=== PATIENT | male | born 1935 | race Caucasian/White ===

== ENCOUNTER 2017-06-25 20:24 | Inpatient (IN) | payer BC, MEDICARE ==
[2017-06-25] MEDS ORDERED: NS 0.9% 1000 ML* 1,000 ML IV ONE (21:16)
[2017-06-25] MEDS ORDERED: Acetaminophen TAB* 325 MG PO ONE (21:16)
[2017-06-25] MEDS ORDERED: NS 0.9% 1000 ML*IV.FLUID IV ONE (21:18)
[2017-06-25] MEDS ORDERED: cefTRIAXone(*) 1 GM in NS 0.9% 50 ML* 50 ML IVPB ONE (21:18)
[2017-06-25] MEDS ORDERED: Azithromycin IV(*) 500 MG in NS 0.9% 250 ML* 250 ML IVPB ONE (21:18)
[2017-06-25] MEDS ORDERED: Albuterol/Ipratropium NEB.SOL* Albuterol 2.5 MG/Ipratropium 0.5 MG 3 ML INH ONE (21:20)
[2017-06-25 21:44] LABS: Hematocrit 31 % (42-52); Hemoglobin 10.4 g/dl (14.0-18.0); Mean Corpuscular HGB Conc 34 g/dl (31-36); Mean Corpuscular Hemoglobin 32 pg (27-31); Mean Corpuscular Volume 93 fL (80-94); Mean Platelet Volume 7 um3 (7.4-10.4); Red Blood Count 3.29 10^6/ul (4.0-5.4); Red Cell Distribution Width 14 % (10.5-15); White Blood Count 11.7 10^3/ul (3.5-10.8)
[2017-06-25 21:59] LABS: Albumin 3.2 g/dL (3.2-5.2); BUN/Creatinine Ratio 20.2 (8-20); Calcium 9.2 mg/dL (8.6-10.3); EGFR African American 47.3 (>60); EGFR Non-African American 36.8 (>60); Globulin 3.4 g/dL (2-4); Total Bilirubin 0.5 mg/dL (0.2-1.0); Total Protein 6.6 g/dL (6.4-8.9)
[2017-06-25 22:00] LABS: Troponin I 0.03 ng/mL (<0.04)
[2017-06-25] MEDS ORDERED: NS 0.9% 1000 ML* 1,000 ML IV SCH (23:45)
[2017-06-25] MEDS ORDERED: Acetaminophen TAB* 325 MG PO PRN (23:50)
[2017-06-25] MEDS ORDERED: Levalbuterol HFA INHALER* 1 PUFF MDI INH PRN (23:52)
--- NOTE | 2017-06-26 03:23 | HP ---
CC: Dr. Renner; Dr. Herman * HISTORY AND PHYSICAL: DATE OF ADMISSION: 06/25/17 PRIMARY CARE PROVIDER: Dr. Renner. MARKETING GRAPHICS SPECIALIST: Dr. Herman. CHIEF COMPLAINT: Shortness of breath. HISTORY OF PRESENT ILLNESS: Stanley Magana is an 81-year-old male with history of oxygen-dependent COPD. The patient uses oxygen at 2 L at home nightly and on as needed basis during the day. He has been having problems with nonproductive cough and feeling weak for the past 4 or 5 days. He presented to the ED for evaluation and was noted to have right lower lobe infiltrate. He is going to be admitted with diagnosis of community-acquired pneumonia. PAST MEDICAL HISTORY: 1. History of COPD, as mentioned above, on oxygen at night at 2 L and on an as needed basis. 2. History of dyslipidemia. 3. History of diabetes type 2. 4. History of paroxysmal atrial fibrillation, on Xarelto. 5. History of BPH. 6. History of coronary artery disease. The patient had a cardiac catheterization in the past, but his coronary artery disease was not amenable for intervention. 7. History of hypertension. 8. History of chronic kidney disease stage 3 due to diabetes. 9. History of lower back surgery in the past. MEDICATIONS: At home include: 1. Xopenex inhaler 2 puffs every 6 hours p.r.n. 2. Advair 250/50 one inhalation b.i.d. 3. Flonase nasal spray 1 spray both nostrils daily. 4. Aspirin 81 mg daily. 5. Metoprolol tartrate 25 mg b.i.d. 6. Losartan 25 mg daily. 7. Spiriva 1 inhalation daily. 8. Flomax 0.4 mg daily. 9. Zocor 50 mg daily. 10. Xarelto 15 mg daily. 11. Singulair 10 mg daily. ALLERGIES: Include PENICILLIN. FAMILY HISTORY: Father's history is unknown. Mother of old age. SOCIAL HISTORY: The patient has a history of quitting smoking in May 2017 and he has a history of smoking most of his adult life. He began when he was about 13 years old. He denies any history of alcohol use. He denies any history of drug use. He lives with his , Radha, who is his surrogate. REVIEW OF SYSTEMS: Please see history of present illness. In addition to above mentioned, the patient is slightly hard of hearing. He has no problems with activities of daily living and he does not use any support for walking. All the remaining 14 systems were reviewed with the patient and patient's and were otherwise negative. PHYSICAL EXAMINATION GENERAL: The patient is a pleasant 81-year-old male who is in no acute distress. Alert and awake and oriented x3. VITAL SIGNS: Blood pressure of 110/63, heart rate of 89 and regular, respiratory rate 14, oxygen saturation 96% on 2 L oxygen nasal cannula. Temperature of 99.3. HEENT: Head: Atraumatic, normocephalic. Eyes: Pupils equal, round, and reactive to light and accommodation. Oropharynx clear. Mucosa moist. NECK: Supple. No JVD. No bruits bilaterally. RESPIRATORY: Rhonchi at lower lung base, otherwise intermittent crackles on auscultation of bilateral mid lungs. No wheezes appreciated. CARDIOVASCULAR: Regular rate and rhythm. No murmurs. ABDOMEN: Soft and nontender. Bowel sounds are present in all 4 quadrants. EXTREMITIES: There is trace bilateral pedal edema. Pulses are +2 bilaterally. There is no clubbing or cyanosis. NEURO EVALUATION: The patient is mildly hard of hearing. There is no evidence of cranial nerve abnormality. Motor strength is 5/5 bilaterally. PSYCHIATRIC EVALUATION: Oriented x3 with no evidence of anxiety or depression. DIAGNOSTIC STUDIES/LAB DATA: Laboratory data show a white blood cell count of 11.7, hemoglobin of 10.4, hematocrit of 31, and platelets of 171. Sodium was 132, potassium 4.0, chloride 102, carbon dioxide 22, BUN is 36, creatinine 1.78. INR of 1.2. Influenza tests were negative. Portable chest x-ray showed right lower lobe pneumonia. ASSESSMENT AND PLAN: Right lower lobe pneumonia. The patient has community- acquired pneumonia and history of oxygen dependent chronic obstructive pulmonary disease. He has mild leukocytosis, but otherwise his respiratory is not compromised above what appears to be his baseline. He is going to be placed on inpatient admission. I anticipate the patient will require 2 days of intravenous antibiotics and inpatient hospital stay. He is going to be continued on ceftriaxone and azithromycin started in the emergency department. Urine legionella and strep pneumo antigens are going to be obtained. As above mentioned, flu was already negative. In regards to patient's chronic obstructive pulmonary disease, he does not appear to be in exacerbation and nebulizers and as well as inhalers are going to be continued as outpatient. In regards to patient's history of atrial fibrillation, currently he is in sinus rhythm. His Xarelto is going to be continued as well as metoprolol. For his dyslipidemia, his statin is going to be continued. The patient has history of diabetes, which at this point appears to be diet controlled. His hemoglobin A1c in July 2016 was 5.7. I do not believe that further management of his diabetes is needed apart from occasional monitoring of his fasting glucose levels during his hospital stay. In regards to patient's chronic kidney disease, his creatinine is at baseline. His anemia, which is worsening of chronic and normocytic. Likely related to his chronic kidney disease. Nevertheless, we will observe and reevaluate with CBC in the morning. In regards to patient's DVT prophylaxis, the patient is already on Xarelto, which is going to be continued. Code status is full. His surrogate is his . TIME SPENT: Approximately 65 minutes was spent on admission of this patient, more than half that time was spent [id number] with the patient doing the interview and physical exam. [id number]/[facility] #: [id number] MTDD
--- NOTE | 2017-06-26 04:27 | ED ---
Jessika Corrales Edward, scribed for Dev Langston MD on 06/25/17 at 2117 . Respiratory - HPI Summary HPI Summary: 81 y/o male BIBA c/o SOB, cough and congestion starting 10 days ago. EMS admin x1 albuterol tx with some relief. Pt is on home O2 2lpm. Associated sx: fever ( 99), weakness, dizziness and fatigue. The cough is nonproductive. Former smoker. PMHx COPD, aortic aneurysm on the ABD. Pt also c/o a hernia underneath his ribs that "bothers the pt", especially when he sits up. Sx on AA. Pt is on blood thinners. - History of Current Complaint Stated Complaint: DIFFICULTY BREATHING Hx Obtained From: Patient Onset/Duration: Lasting Days Character: Cough (Nonproductive) Sputum Amount: None Aggravating Factor(s): Nothing Alleviating Factor(s): Nothing Associated Signs and Symptoms: Fever, SOB, Dizziness - weakness and fatigue - Allergy/Home Medications Allergies/Adverse Reactions: Allergies Allergy/AdvReac Type Severity Reaction Status Date / Time Penicillins [PCN] Allergy Unknown Rash Verified 06/16/16 07:19 PMH/Surg Hx/FS Hx/Imm Hx Previously Healthy: No Endocrine/Hematology History: Reports: Hx Diabetes Denies: Hx Anticoagulant Therapy, Hx Thyroid Disease Cardiovascular History: Reports: Hx Coronary Artery Disease, Hx Hypertension, Other Cardiovascular Problems/Disorders - CHOLESTEROL CONTROL WITH MEDS Denies: Hx Congestive Heart Failure, Hx Pacemaker/ICD Respiratory History: Reports: Hx Asthma, Hx Chronic Obstructive Pulmonary Disease (COPD) - Dx in evan 2010, Other Respiratory Problems/Disorders - COPD GI History: Reports: Hx Gastroesophageal Reflux Disease - OCCASIONAL - DIET RELATED, Other GI Disorders - OCCASIONAL CONSTIPATION History: Denies: Hx Renal Disease Musculoskeletal History: Reports: Hx Back Problems Sensory History: Reports: Hx Cataracts - BILATERAL, Hx Contacts or Glasses, Hx Hearing Problem - HOPI Denies: Hx Hearing Aid Opthamlomology History: Reports: Hx Cataracts - BILATERAL, Hx Contacts or Glasses Neurological History: Denies: Hx Dementia, Hx Seizures Psychiatric History: Denies: Hx Substance Abuse - Cancer History Hx Chemotherapy: No Hx Radiation Therapy: No - Surgical History Surgery Procedure, Year, and Place: back surgery Hx Anesthesia Reactions: No Infectious Disease History: Denies: Hx Clostridium Difficile, Hx Hepatitis, Hx Human Immunodeficiency Virus (HIV), Hx Shingles, Hx Tuberculosis - Family History Known Family History: Positive: Unknown - Social History Alcohol Use: None Hx Substance Use: No Substance Use Type: Reports: None Hx Tobacco Use: Yes Smoking Status (MU): Former Smoker Type: Cigarettes Amount Used/How Often: 1 PPD FOR ABOUT 60 YEARS Length of Time of Smoking/Using Tobacco: 60 YEARS Have You Smoked in the Last Year: No Review of Systems Positive: Fever, Fatigue Eyes: Negative Positive: Other - sinus congestion Cardiovascular: Negative Positive: Shortness Of Breath, Cough Gastrointestinal: Negative Genitourinary: Negative Musculoskeletal: Negative Skin: Negative Neurological: Other - dizziness Positive: Weakness Psychological: Normal All Other Systems Reviewed And Are Negative: Yes Physical Exam Triage Information Reviewed: Yes Vital Signs On Initial Exam: Initial Vitals Temp Pulse Resp BP Pulse Ox 37.4 C 92 13 125/66 95 06/25/17 20:38 06/25/17 20:38 06/25/17 20:38 06/25/17 20:38 06/25/17 20:38 Vital Signs Reviewed: Yes Appearance: Positive: Well-Appearing, No Pain Distress Skin: Positive: Warm, Skin Color Reflects Adequate Perfusion, Dry Head/Face: Positive: Normal Head/Face Inspection Eyes: Positive: EOMI, DANIA ENT: Positive: Normal ENT inspection - No nasal discharge Neck: Positive: Supple, Nontender Respiratory/Lung Sounds: Positive: Breath Sounds Present, Wheezes - Minimal, Other - Fine crackles @ R base. Cardiovascular: Positive: RRR, Pulses are Symmetrical in both Upper and Lower Extremities Abdomen Description: Positive: Nontender, Soft Bowel Sounds: Positive: Present Musculoskeletal: Positive: Normal, Strength/ROM Intact Neurological: Positive: Normal, Sensory/Motor Intact Diagnostics - Vital Signs Vital Signs Temp Pulse Resp BP Pulse Ox 06/25/17 23:00 92 14 114/51 96 06/25/17 22:30 88 20 133/59 97 06/25/17 22:09 84 14 98 06/25/17 22:00 84 17 96 06/25/17 21:00 91 16 116/55 95 06/25/17 20:45 93 18 94 06/25/17 20:44 115/63 06/25/17 20:38 37.4 C 92 13 125/66 95 - Laboratory Lab Results: Lab Results 11/06/25/17 06/25/17 Range/Units 21:32 21:32 21:32 WBC 11.7 H (3.5-10.8) 10^3/ul RBC 3.29 L (4.0-5.4) 10^6/ul Hgb 10.4 L (14.0-18.0) g/dl Hct 31 L (42-52) % MCV 93 (80-94) fL MCH 32 H (27-31) pg MCHC 34 (31-36) g/dl RDW 14 (10.5-15) % Plt Count 171 (150-450) 10^3/ul MPV 7 L (7.4-10.4) um3 Neut % (Auto) 87.1 H (38-83) % Lymph % (Auto) 5.7 L (25-47) % [place] % (Auto) 5.4 (1-9) % Eos % (Auto) 1.0 (0-6) % Baso % (Auto) 0.8 (0-2) % Absolute Neuts (auto) 10.2 H (1.5-7.7) 10^3/ul Absolute Lymphs (auto) 0.7 L (1.0-4.8) 10^3/ul Absolute Monos (auto) 0.6 (0-0.8) 10^3/ul Absolute Eos (auto) 0.1 (0-0.6) 10^3/ul Absolute Basos (auto) 0.1 (0-0.2) 10^3/ul Absolute Nucleated RBC 0 10^3/ul Nucleated RBC % 0 INR (Anticoag Therapy) 1.27 H (0.77-1.02) APTT 31.6 (26.0-36.3) seconds Sodium (133-145) mmol/L Potassium (3.5-5.0) mmol/L Chloride (101-111) mmol/L Carbon Dioxide (22-32) mmol/L Anion Gap (2-11) mmol/L BUN (6-24) mg/dL Creatinine (0.67-1.17) mg/dL Est GFR ( Amer) (>60) Est GFR (Non-Af Amer) (>60) BUN/Creatinine Ratio (8-20) Glucose (70-100) mg/dL Lactic Acid 1.6 (0.5-2.0) mmol/L Calcium (8.6-10.3) mg/dL Total Bilirubin (0.2-1.0) mg/dL AST (13-39) U/L ALT (7-52) U/L Alkaline Phosphatase (34-104) U/L Troponin I (<0.04) ng/mL Total Protein (6.4-8.9) g/dL Albumin (3.2-5.2) g/dL Globulin (2-4) g/dL Albumin/Globulin Ratio (1-3) Influenza A (Rapid) (Negative) Influenza B (Rapid) (Negative) 06/25/17 06/25/17 Range/Units 21:32 21:55 WBC (3.5-10.8) 10^3/ul RBC (4.0-5.4) 10^6/ul Hgb (14.0-18.0) g/dl Hct (42-52) % MCV (80-94) fL MCH (27-31) pg MCHC (31-36) g/dl RDW (10.5-15) % Plt Count (150-450) 10^3/ul MPV (7.4-10.4) um3 Neut % (Auto) (38-83) % Lymph % (Auto) (25-47) % [place] % (Auto) (1-9) % Eos % (Auto) (0-6) % Baso % (Auto) (0-2) % Absolute Neuts (auto) (1.5-7.7) 10^3/ul Absolute Lymphs (auto) (1.0-4.8) 10^3/ul Absolute Monos (auto) (0-0.8) 10^3/ul Absolute Eos (auto) (0-0.6) 10^3/ul Absolute Basos (auto) (0-0.2) 10^3/ul Absolute Nucleated RBC 10^3/ul Nucleated RBC % INR (Anticoag Therapy) (0.77-1.02) APTT (26.0-36.3) seconds Sodium 132 L (133-145) mmol/L Potassium 4.0 (3.5-5.0) mmol/L Chloride 102 (101-111) mmol/L Carbon Dioxide 22 (22-32) mmol/L Anion Gap 8 (2-11) mmol/L BUN 36 H (6-24) mg/dL Creatinine 1.78 H (0.67-1.17) mg/dL Est GFR ( Amer) 47.3 (>60) Est GFR (Non-Af Amer) 36.8 (>60) BUN/Creatinine Ratio 20.2 H (8-20) Glucose 164 H (70-100) mg/dL Lactic Acid (0.5-2.0) mmol/L Calcium 9.2 (8.6-10.3) mg/dL Total Bilirubin 0.50 (0.2-1.0) mg/dL AST 11 L (13-39) U/L ALT 8 (7-52) U/L Alkaline Phosphatase 51 (34-104) U/L Troponin I 0.03 (<0.04) ng/mL Total Protein 6.6 (6.4-8.9) g/dL Albumin 3.2 (3.2-5.2) g/dL Globulin 3.4 (2-4) g/dL Albumin/Globulin Ratio 0.9 L (1-3) Influenza A (Rapid) Negative (Negative) Influenza B (Rapid) Negative (Negative) Result Diagrams: 06/25/17 21:32 06/25/17 21:32 Lab Statement: Any lab studies that have been ordered have been reviewed, and results considered in the medical decision making process. - Radiology CXR Xray Interpretation: Positive (See Comments) - R LOWER LOBE PNA Radiology Interpretation Completed By: ED Physician Re-Evaluation - Re-Evaluation 1 Re-Evaluation Time: 22:24 Change: Improved Comment: discuss XR results, plan to admit Disposition - Course Course Of Treatment: Pt with crackles RLL and lobar infiltrate. Given high age and PORT score pt requires admission. CAP without MRSA or Pseudomonal risk factors. BCx obtained. Lactate not elevated. Admit for further. - Diagnoses Provider Diagnoses: Right basilar pneumonia - Physician Notifications Discussed Care Of Patient With: Janae Obregon Time Discussed With Above Provider: 22:27 Instructed by Provider To: Admit As Inpatient Discharge - Discharge Plan Condition: Guarded Disposition: ADMITTED TO [facility] documentation as recorded by the Jessika joseph Edward accurately reflects the service I personally performed and the decisions made by Ivis shaw Kirk, MD.
[2017-06-26 05:56] LABS: Hematocrit 28 % (42-52); Hemoglobin 9.7 g/dl (14.0-18.0); Mean Corpuscular HGB Conc 35 g/dl (31-36); Mean Corpuscular Hemoglobin 33 pg (27-31); Mean Corpuscular Volume 94 fL (80-94); Mean Platelet Volume 7 um3 (7.4-10.4); Red Blood Count 2.98 10^6/ul (4.0-5.4); Red Cell Distribution Width 14 % (10.5-15); White Blood Count 9.7 10^3/ul (3.5-10.8)
[2017-06-26 06:48] LABS: BUN/Creatinine Ratio 19.2 (8-20); Calcium 8.4 mg/dL (8.6-10.3); EGFR African American 57.2 (>60); EGFR Non-African American 44.5 (>60)
--- NOTE | 2017-06-26 07:22 | RAD ---
INDICATION: Cough and fever. COMPARISON: Comparison is made with prior study from November 21, 2012. TECHNIQUE: Dual-energy PA and lateral views of the chest were obtained. FINDINGS: The heart is within normal limits in size. Mediastinal and hilar contours appear within normal limits. There are infiltrates at both lung bases most consistent with pneumonia. No pleural effusion is seen.. IMPRESSION: BIBASILAR INFILTRATES.
[2017-06-26] MEDS ORDERED: Spiriva Inhaler DEVICE* 1 EACH DEVICE ONE (09:00)
[2017-06-26] MEDS: Rivaroxaban TAB(*) 15 MG PO SCH (09:04)
[2017-06-26] MEDS: Losartan TAB* 25 MG PO SCH (09:04)
[2017-06-26] MEDS: Atorvastatin* 20 MG TAB PO SCH (09:04)
[2017-06-26] MEDS: Tamsulosin CAP* 0.4 MG PO SCH (09:04)
[2017-06-26] MEDS: Aspirin Low Dose CHEW TAB* 81 MG PO SCH (09:04)
[2017-06-26] MEDS: Metoprolol Tartrate TAB* 25 MG PO SCH ×2 (09:04→20:57)
[2017-06-26] MEDS: Fluticasone NASAL SPRAY 50MCG* 16 gm SPRAY BTL BOTH NARES SCH (09:07)
[2017-06-26] MEDS: Mometasone/Formoter 200/5 MDI INH SCH ×2 (10:39→19:57)
[2017-06-26] MEDS: Tiotropium CAP.INH* CAP.INH/18 MCG (USE ORDER SET !) INH SCH (10:46)
[2017-06-26] MEDS ORDERED: Docusate CAP* 100 MG PO PRN (15:35)
[2017-06-26] MEDS ORDERED: Polyethylene Glycol 3350* 17 GM PACKET PO PRN (15:35)
--- NOTE | 2017-06-26 15:43 | PN ---
Subjective Date of Service: 06/26/17 Interval History: Patient feels much better than yesterday. Improved but present SOB, on 4L, which is up from 3L intermittently at home. Intermittently productive cough without hemoptysis. Constipated for significant period of time with discomfort. Denies CP, Abdominal pain, F/C, N/V, Dizziness, Lightheadedness, or other pain. Weakness improved. Able to ambulate around room. Family History: Unchanged from Admission Social History: Unchanged from Admission Past Medical History: Unchanged from Admission Objective Active Medications: Acetaminophen (Tylenol Tab*) 650 mg PO Q4H PRN PRN Reason: FEVER/PAIN Albuterol/Ipratropium (Duoneb (Albuterol 2.5 Mg/Ipratropium 0.5 Mg)) 1 neb INH Q6H PRN PRN Reason: sob/wheezing Aspirin (Aspirin Low Dose Tab*) [facility] Last Admin: 06/26/17 09:04 Dose: 81 mg Atorvastatin Calcium (Lipitor*) 20 mg PO [facility] Last Admin: 06/26/17 09:04 Dose: 20 mg Docusate Sodium (Colace Cap*) 200 mg PO DAILY PRN PRN Reason: CONSTIPATION Fluticasone Propionate (Flonase Nasal [place] 50mcg*) 1 spray [facility] [place] Last Admin: 06/26/17 09:07 Dose: 1 spray Ceftriaxone Sodium 1,000 mg/ (Sodium Chloride) 50 mls @ 200 mls/hr IVPB Q24H [facility] Stop: 06/26/17 23:00 Ceftriaxone Sodium 1,000 mg/ (Dextrose) 50 mls @ 200 mls/hr IVPB Q24H [facility] Azithromycin 250 mg/ Dextrose 250 mls @ 250 mls/hr IVPB Q24H [facility] Levalbuterol HCl (Xopenex Hfa Inhaler*) 2 puff INH Q6H PRN PRN Reason: SHORTNESS OF BREATH Losartan Potassium (Cozaar Tab*) 25 mg PO DAILY [facility] Last Admin: 06/26/17 09:04 Dose: 25 mg Metoprolol Tartrate (Lopressor Tab*) 25 mg PO BID [facility] Last Admin: 06/26/17 09:04 Dose: 25 mg Mometasone Furoate/Formoterol Fumar (Dulera 200/5 Mdi*) 2 puff INH BID [facility] Last Admin: 06/26/17 10:39 Dose: 2 puff Montelukast Sodium (Singulair Tab*) 10 mg PO QPM [facility] Polyethylene Glycol/Electrolytes (Miralax*) 17 gm PO DAILY PRN PRN Reason: CONSTIPATION Rivaroxaban (Xarelto(*)) 15 mg PO DAILY [facility] Last Admin: 06/26/17 09:04 Dose: 15 mg Tamsulosin HCl (Flomax Cap*) 0.4 mg PO DAILY [facility] Last Admin: 06/26/17 09:04 Dose: 0.4 mg Tiotropium Ralls (Spiriva Cap.Inh*) 1 cap INH QAM [facility] Last Admin: 06/26/17 10:46 Dose: 1 cap Vital Signs 06/25/17 06/26/17 06/26/17 23:30 00:00 00:01 Temperature Pulse Rate 89 88 87 Respiratory 14 15 17 Rate Blood Pressure 110/63 126/64 (mmHg) O2 Sat by Pulse 96 97 97 Oximetry 06/26/17 06/26/17 06/26/17 00:07 00:30 01:00 Temperature Pulse Rate 94 85 84 Respiratory 19 13 14 Rate Blood Pressure 125/64 125/66 (mmHg) O2 Sat by Pulse 93 96 94 Oximetry 06/26/17 06/26/17 06/26/17 01:17 01:49 03:55 Temperature 99.1 F 99.1 F 97.4 F Pulse Rate 82 82 79 Respiratory 19 19 18 Rate Blood Pressure 131/69 131/69 105/33 (mmHg) O2 Sat by Pulse 98 98 100 Oximetry 06/26/17 06/26/17 06/26/17 08:00 08:12 11:39 Temperature 98.1 F 98.3 F Pulse Rate 78 71 Respiratory 18 16 16 Rate Blood Pressure 114/54 142/74 (mmHg) O2 Sat by Pulse 99 96 Oximetry Oxygen Devices in Use Now: Nasal Cannula - 4L Appearance: Patient is an 81yo male who appears stated age and is sitting in the bed in [facility]. Eyes: No Scleral Icterus, PERRLA Ears/Nose/Mouth/Throat: NL Teeth, Lips, Gums, Mucous Membranes Moist, - - Pharyngeal erythema without exudate. Neck: NL Appearance and Movements; NL JVP, Trachea Midline Respiratory: Symmetrical Chest Expansion and Respiratory Effort, - - Decreased diffusely without adventitious lung sounds. Cardiovascular: NL Sounds; No Murmurs; No JVD, RRR, No Edema, - - Pulses 2+ in B /L Radial, DP/PT. No edema. Abdominal: NL Sounds; No Tenderness; No Distention, No Hepatosplenomegaly Lymphatic: No Cervical Adenopathy Extremities: No Edema Skin: No Rash or Ulcers, No Nodules or Sclerosis Neurological: Alert and Oriented x 3, - - CN II-XII grossly intact. Lines/Tubes/Other Access: Clean, Dry and Intact Tracheostomy Result Diagrams: 06/26/17 05:42 06/26/17 05:42 Additional Lab and Data: Lab Results Microbiology and Other Data: Microbiology 06/26/17 14:30 Gram Stain - Final Sputum Expectorated 06/26/17 02:00 Legionella Urinary Antigen - Final Urine Negative Legionella Streptococcus pneumoniae Ag Screen - Final Positive S. Pneumo Antigen Assess/Plan/Problems-Billing Assessment: Patient is an 81yo male with a PMH significant for COPD, CAD, CKD, HTN, and DM II who presents with RLL PNA with positive S. pneumo urinary antigen. - Patient Problems (1) RLL pneumonia Current Visit: Yes Status: Acute Code(s): J18.1 - LOBAR PNEUMONIA, UNSPECIFIED ORGANISM SNOMED Code(s): 727268848 Comment: Infiltrate on CXR with positive strep pneumo urine antigen. Continue Ceftriaxone and Azithromycin IV, will transition to PO at or before discharge. Suptum and blood cultures pending. Increased O2 demand at 4L. (2) COPD (chronic obstructive pulmonary disease) Current Visit: Yes Status: Acute Code(s): J44.9 - CHRONIC OBSTRUCTIVE PULMONARY DISEASE, UNSPECIFIED SNOMED Code(s): 30222581 Comment: Needs O2 intermittently at 3L during the day at home and 2L at night always. At 4L O2 now. No signs of acute exacerbation. (3) CKD (chronic kidney disease) Current Visit: Yes Status: Acute Code(s): N18.9 - CHRONIC KIDNEY DISEASE, UNSPECIFIED SNOMED Code(s): 125623444 Comment: Cret at baseline and trending down. Will monitor. Fluids discontinued due to cardiac history. (4) DMII (diabetes mellitus, type 2) Current Visit: Yes Status: Acute Comment: Diet controlled. Check fasting BG QAM. (5) HLD (hyperlipidemia) Current Visit: Yes Status: Acute Code(s): E78.5 - HYPERLIPIDEMIA, UNSPECIFIED SNOMED Code(s): 82193059 Comment: Continue statin. (6) Paroxysmal A-fib Current Visit: Yes Status: Acute Code(s): I48.0 - PAROXYSMAL ATRIAL FIBRILLATION SNOMED Code(s): 107043106 Comment: Regular HR on exam. Continue Xarelto and Metoprolol. (7) CAD (coronary artery disease) Current Visit: Yes Status: Acute Code(s): I25.10 - ATHSCL HEART DISEASE OF [place] CORONARY ARTERY W/O ANG PCTRS SNOMED Code(s): 83542333 Comment: S/P cath. No signs of ACS currently. (8) HTN (hypertension) Current Visit: Yes Status: Acute Code(s): I10 - ESSENTIAL (PRIMARY) HYPERTENSION SNOMED Code(s): 47041243 Comment: Normotensive, Continue Losartan and Metoprolol. (9) BPH (benign prostatic hyperplasia) Current Visit: Yes Status: Acute Code(s): N40.0 - BENIGN PROSTATIC HYPERPLASIA WITHOUT LOWER URINRY TRACT SYMP SNOMED Code(s): 992768483 Comment: Continue Flomax. (10) Constipation Current Visit: Yes Status: Acute Code(s): K59.00 - CONSTIPATION, UNSPECIFIED SNOMED Code(s): 30544542 Comment: Causing abdominal discomfort. 2 days since last BM. Chronic problem. Bowel Regimen ordered. (11) DVT prophylaxis Current Visit: Yes Status: Acute Code(s): SMA3849 - SNOMED Code(s): 240982244 Comment: Xarelto. (12) Full code status Current Visit: Yes Status: Acute Code(s): Z78.9 - OTHER SPECIFIED HEALTH STATUS SNOMED Code(s): 934127881 Status and Disposition: Patient is admitted inpatient. Will discharge when medically stable.
[2017-06-26] MEDS: Montelukast Sodium TAB* 10 MG PO SCH (17:24)
[2017-06-26] MEDS: guaiFENesin ER TAB 600 MG PO SCH (20:57)
[2017-06-26] MEDS ORDERED: cefTRIAXone VIAL(*) 1,000 MG in NS 0.9% 50 ML* 50 ML IVPB SCH (21:00)
[2017-06-26] MEDS: Azithromycin IV(*) 250 MG in D5W 250 ML BAG* 250 ML IVPB SCH (21:26)
[2017-06-26] MEDS ORDERED: Azithromycin IV(*) 500 MG in D5W 250 ML BAG* 250 ML IVPB SCH (22:00)
[2017-06-27 07:17] LABS: BUN/Creatinine Ratio 16.9 (8-20); Calcium 8.5 mg/dL (8.6-10.3); EGFR African American 55.9 (>60); EGFR Non-African American 43.5 (>60); Hematocrit 32 % (42-52); Hemoglobin 10.8 g/dl (14.0-18.0); Mean Corpuscular HGB Conc 34 g/dl (31-36); Mean Corpuscular Hemoglobin 32 pg (27-31); Mean Corpuscular Volume 93 fL (80-94); Mean Platelet Volume 8 um3 (7.4-10.4); Potassium 4.3 mmol/L (3.5-5.0); Red Blood Count 3.41 10^6/ul (4.0-5.4); Red Cell Distribution Width 14 % (10.5-15); White Blood Count 10.4 10^3/ul (3.5-10.8)
[2017-06-27] MEDS: Tiotropium CAP.INH* CAP.INH/18 MCG (USE ORDER SET !) INH SCH (08:19)
[2017-06-27] MEDS: Mometasone/Formoter 200/5 MDI INH SCH ×2 (08:19→19:49)
[2017-06-27] MEDS: Albuterol/Ipratropium NEB.SOL* Albuterol 2.5 MG/Ipratropium 0.5 MG 3 ML INH PRN ×2 (08:25→15:58)
[2017-06-27] MEDS: Fluticasone NASAL SPRAY 50MCG* 16 gm SPRAY BTL BOTH NARES SCH (09:19)
[2017-06-27] MEDS: Rivaroxaban TAB(*) 15 MG PO SCH (09:19)
[2017-06-27] MEDS: Tamsulosin CAP* 0.4 MG PO SCH (09:19)
[2017-06-27] MEDS: Losartan TAB* 25 MG PO SCH (09:19)
[2017-06-27] MEDS: Atorvastatin* 20 MG TAB PO SCH (09:19)
[2017-06-27] MEDS: guaiFENesin ER TAB 600 MG PO SCH ×2 (09:19→21:22)
[2017-06-27] MEDS: Metoprolol Tartrate TAB* 25 MG PO SCH ×2 (09:19→21:23)
[2017-06-27] MEDS: Aspirin Low Dose CHEW TAB* 81 MG PO SCH (09:19)
--- NOTE | 2017-06-27 16:18 | PN ---
Subjective Date of Service: 06/27/17 Interval History: Patient had increased SOB overnight which is worse with exertion. Able to wean O2 down to 3L during interview but lung exam worsened significantly overnight with rhonchi and expiratory wheezes present in all lung ruby with prolonged expiratory phase. Improved with Duoneb and then consistent with yesterday's exam by afternoon. Denies any other complaints such as CP, N/V, F/C, abdominal pain, diarrhea, constipation, dizziness, dysuria, or other pain. Family History: Unchanged from Admission Social History: Unchanged from Admission Past Medical History: Unchanged from Admission Objective Active Medications: Acetaminophen (Tylenol Tab*) 650 mg PO Q4H PRN PRN Reason: FEVER/PAIN Albuterol/Ipratropium (Duoneb (Albuterol 2.5 Mg/Ipratropium 0.5 Mg)) 1 neb INH Q6H PRN PRN Reason: sob/wheezing Last Admin: 06/27/17 15:58 Dose: 1 neb Aspirin (Aspirin Low Dose Tab*) [facility] [place] Last Admin: 06/27/17 09:19 Dose: 81 mg Atorvastatin Calcium (Lipitor*) 20 mg PO QAM [facility] Last Admin: 06/27/17 09:19 Dose: 20 mg Docusate Sodium (Colace Cap*) 200 mg PO DAILY PRN PRN Reason: CONSTIPATION Fluticasone Propionate (Flonase Nasal [place] 50mcg*) 1 spray [facility] Last Admin: 06/27/17 09:19 Dose: 1 spray Guaifenesin (Mucinex*) 1,200 mg PO BID [facility] Last Admin: 06/27/17 09:19 Dose: 1,200 mg Ceftriaxone Sodium 1,000 mg/ (Dextrose) 50 mls @ 200 mls/hr IVPB Q24H [facility] Azithromycin 250 mg/ Dextrose 250 mls @ 250 mls/hr IVPB Q24H [facility] Last Admin: 06/26/17 21:26 Dose: 250 mls/hr Levalbuterol HCl (Xopenex Hfa Inhaler*) 2 puff INH Q6H PRN PRN Reason: SHORTNESS OF BREATH Losartan Potassium (Cozaar Tab*) 25 mg PO DAILY [facility] Last Admin: 06/27/17 09:19 Dose: 25 mg Metoprolol Tartrate (Lopressor Tab*) 25 mg PO BID [facility] Last Admin: 12/02/17 09:19 Dose: 25 mg Mometasone Furoate/Formoterol Fumar (Dulera 200/5 Mdi*) 2 puff INH BID [facility] Last Admin: 06/27/17 08:19 Dose: 2 puff Montelukast Sodium (Singulair Tab*) 10 mg PO QPM [facility] Last Admin: 06/26/17 17:24 Dose: 10 mg Polyethylene Glycol/Electrolytes (Miralax*) 17 gm PO DAILY PRN PRN Reason: CONSTIPATION Last Admin: 06/26/17 17:25 Dose: 17 gm Rivaroxaban (Xarelto(*)) 15 mg PO DAILY [facility] Last Admin: 06/27/17 09:19 Dose: 15 mg Tamsulosin HCl (Flomax Cap*) 0.4 mg PO DAILY [facility] Last Admin: 06/27/17 09:19 Dose: 0.[address] [place] (Spiriva Cap.Inh*) 1 cap INH QAM [facility] Last Admin: 06/27/17 08:19 Dose: 1 cap Vital Signs 06/26/17 06/26/17 06/26/17 17:10 19:43 22:16 Temperature 98.3 F 97.9 F Pulse Rate 75 79 Respiratory 17 18 Rate Blood Pressure 141/67 (mmHg) O2 Sat by Pulse 94 95 Oximetry 06/26/17 06/27/17 06/27/17 23:35 07:33 08:00 Temperature 97.7 F 97.7 F Pulse Rate 75 75 Respiratory 20 20 20 Rate Blood Pressure 126/55 146/74 (mmHg) O2 Sat by Pulse 96 95 Oximetry 06/27/17 06/27/17 08:26 16:00 Temperature Pulse Rate 75 78 Respiratory 16 Rate Blood Pressure (mmHg) O2 Sat by Pulse 91 92 Oximetry Oxygen Devices in Use Now: Nasal Cannula - 3L Appearance: Patient is an 81yo male who appears younger than stated age and is sitting in the bed in NAD with no increased work of breathing or accessory muscle use. Eyes: No Scleral Icterus, PERRLA Ears/Nose/Mouth/Throat: NL Teeth, Lips, Gums, Clear Oropharnyx, Mucous Membranes Moist Neck: NL Appearance and Movements; NL JVP, Trachea Midline Respiratory: Symmetrical Chest Expansion and Respiratory Effort, - - Decreased breath sounds in all lung ruby. Rhonchi, expiratory wheezes and prolonged expiratory phase in all lung ruby in AM. Cardiovascular: NL Sounds; No Murmurs; No JVD, No Edema, - - Irregular rhythm. Abdominal: No Hepatosplenomegaly, - - Distended similar to previous exam, non- tender, no guarding. BS present and normoactive in all 4 quadrants. Extremities: No Edema, No Clubbing, Cyanosis Skin: No Rash or Ulcers, No Nodules or Sclerosis Neurological: Alert and Oriented x 3, NL Gait, NL Muscle Strength and Tone Result Diagrams: 06/27/17 06:40 06/27/17 06:40 Additional Lab and Data: Lab Results Microbiology and Other Data: Microbiology 06/26/17 14:30 Gram Stain - Final Sputum Expectorated 06/26/17 02:00 Legionella Urinary Antigen - Final Urine Negative Legionella Streptococcus pneumoniae Ag Screen - Final Positive S. Pneumo Antigen Assess/Plan/Problems-Billing Assessment: Patient is an 81yo male with a PMH significant for COPD, CAD, CKD, HTN, and DM II who presents with RLL PNA with positive S. pneumo urinary antigen. - Patient Problems (1) RLL pneumonia Current Visit: Yes Status: Acute Code(s): J18.1 - LOBAR PNEUMONIA, UNSPECIFIED ORGANISM SNOMED Code(s): 173808153 Comment: Infiltrate on CXR with positive strep pneumo urine antigen. Continue Ceftriaxone and Azithromycin IV, will transition to PO at or before discharge. Suptum and blood cultures pending. Increased O2 demand at 4L. Now down to 3L with sats in the low 90s. (2) COPD (chronic obstructive pulmonary disease) Current Visit: Yes Status: Acute Code(s): J44.9 - CHRONIC OBSTRUCTIVE PULMONARY DISEASE, UNSPECIFIED SNOMED Code(s): 16245475 Comment: Needs O2 intermittently at 3L during the day at home and 2L at night always. At 3L O2 now. Equivocal signs of exacerbation in AM. Will continue increased duoneb treatments and maintenance inhalers without oral steroids. (3) CKD (chronic kidney disease) Current Visit: Yes Status: Acute Code(s): N18.9 - CHRONIC KIDNEY DISEASE, UNSPECIFIED SNOMED Code(s): 490182512 Comment: Cret at baseline and trending down. Will monitor. Fluids discontinued due to cardiac history. (4) DMII (diabetes mellitus, type 2) Current Visit: Yes Status: Acute Comment: Diet controlled. Check fasting BG QAM. (5) HLD (hyperlipidemia) Current Visit: Yes Status: Acute Code(s): E78.5 - HYPERLIPIDEMIA, UNSPECIFIED SNOMED Code(s): 47886741 Comment: Continue statin. (6) Paroxysmal A-fib Current Visit: Yes Status: Acute Code(s): I48.0 - PAROXYSMAL ATRIAL FIBRILLATION SNOMED Code(s): 533601965 Comment: Regular HR on exam. Continue Xarelto and Metoprolol. (7) CAD (coronary artery disease) Current Visit: Yes Status: Acute Code(s): I25.10 - ATHSCL HEART DISEASE OF [place] CORONARY ARTERY W/O ANG PCTRS SNOMED Code(s): 11607816 Comment: S/P cath. No signs of ACS currently. (8) HTN (hypertension) Current Visit: Yes Status: Acute Code(s): I10 - ESSENTIAL (PRIMARY) HYPERTENSION SNOMED Code(s): 67609440 Comment: Normotensive, Continue Losartan and Metoprolol. (9) BPH (benign prostatic hyperplasia) Current Visit: Yes Status: Acute Code(s): N40.0 - BENIGN PROSTATIC HYPERPLASIA WITHOUT LOWER URINRY TRACT SYMP SNOMED Code(s): 743024256 Comment: Continue Flomax. (10) Constipation Current Visit: Yes Status: Acute Code(s): K59.00 - CONSTIPATION, UNSPECIFIED SNOMED Code(s): 77530083 Comment: Had BM on 06/26. Bowel regimen PRN. (11) Anemia Current Visit: Yes Status: Acute Code(s): D64.9 - ANEMIA, UNSPECIFIED SNOMED Code(s): 377699835 Comment: Chronic, Normocytic, now at 10.4. Probably due to CKD. Not symptomatic, will not pursue further workup at this time. Will monitor. (12) DVT prophylaxis Current Visit: Yes Status: Acute Code(s): RIT5839 - SNOMED Code(s): 583312184 Comment: Xarelto. (13) Full code status Current Visit: Yes Status: Acute Code(s): Z78.9 - OTHER SPECIFIED HEALTH STATUS SNOMED Code(s): 546626350 Status and Disposition: Patient is admitted inpatient. Will discharge when medically stable.
[2017-06-27] MEDS: Montelukast Sodium TAB* 10 MG PO SCH (17:36)
[2017-06-27] MEDS ORDERED: cefTRIAXone VIAL(*) 1,000 MG in D5W 50 ML BAG* 50 ML IVPB SCH (21:00)
[2017-06-27] MEDS: Azithromycin IV(*) 250 MG in D5W 250 ML BAG* 250 ML IVPB SCH (21:55)
[2017-06-28 07:20] LABS: Hematocrit 31 % (42-52); Hemoglobin 10.5 g/dl (14.0-18.0); Mean Corpuscular HGB Conc 35 g/dl (31-36); Mean Corpuscular Hemoglobin 32 pg (27-31); Mean Corpuscular Volume 93 fL (80-94); Mean Platelet Volume 7 um3 (7.4-10.4); Red Blood Count 3.29 10^6/ul (4.0-5.4); Red Cell Distribution Width 13 % (10.5-15); White Blood Count 8.4 10^3/ul (3.5-10.8)
[2017-06-28 07:30] LABS: BUN/Creatinine Ratio 17.7 (8-20); Calcium 8.9 mg/dL (8.6-10.3); EGFR African American 61.9 (>60); EGFR Non-African American 48.1 (>60); Potassium 4.2 mmol/L (3.5-5.0)
[2017-06-28] MEDS: Tiotropium CAP.INH* CAP.INH/18 MCG (USE ORDER SET !) INH SCH (07:48)
[2017-06-28] MEDS: Mometasone/Formoter 200/5 MDI INH SCH (07:48)
[2017-06-28] MEDS: Albuterol/Ipratropium NEB.SOL* Albuterol 2.5 MG/Ipratropium 0.5 MG 3 ML INH PRN (07:48)
[2017-06-28] MEDS: Aspirin Low Dose CHEW TAB* 81 MG PO SCH (09:15)
[2017-06-28] MEDS: Tamsulosin CAP* 0.4 MG PO SCH (09:15)
[2017-06-28] MEDS: Losartan TAB* 25 MG PO SCH (09:15)
[2017-06-28] MEDS: Metoprolol Tartrate TAB* 25 MG PO SCH (09:15)
[2017-06-28] MEDS: Atorvastatin* 20 MG TAB PO SCH (09:15)
[2017-06-28] MEDS: Rivaroxaban TAB(*) 15 MG PO SCH (09:16)
[2017-06-28] MEDS: Fluticasone NASAL SPRAY 50MCG* 16 gm SPRAY BTL BOTH NARES SCH (09:16)
[2017-06-28] MEDS: guaiFENesin ER TAB 600 MG PO SCH (09:16)
[2017-06-28 09:37] VITALS: BP 143/79
--- NOTE | 2017-06-29 01:00 | DS ---
CC: Dr. Renner; Dr. Herman * DISCHARGE SUMMARY: DATE OF ADMISSION: 06/25/17 DATE OF DISCHARGE: 06/28/17 PRIMARY CARE PROVIDER: Dr. Renner. PIECE MARKER SMALL ARMS: Dr. Herman. MY ATTENDING WHILE IN THE HOSPITAL: Dr. Alejandro Moran * (DICTATED BY FRANKLIN LOPEZ) PRIMARY DISCHARGE DIAGNOSIS: Community-acquired pneumonia due to Streptococcus pneumoniae. SECONDARY DISCHARGE DIAGNOSES: 1. Chronic obstructive pulmonary disease on oxygen at night. 2. Dyslipidemia. 3. Diet controlled diabetes mellitus type 2. 4. Paroxysmal atrial fibrillation. 5. Benign prostatic hypertrophy. 6. Coronary artery disease. 7. Hypertension. 8. Chronic kidney disease, stage 3. STUDIES DONE WHILE IN THE HOSPITAL: 1. Chest x-ray from 06/25/17 read as bibasilar infiltrate most consistent with pneumonia. MEDICATIONS AT DISCHARGE: 1. Metoprolol tartrate 25 mg p.o. b.i.d. 2. Simvastatin 50 mg p.o. q.a.m. 3. Tiotropium 18 mcg p.o. q.a.m. 4. Aspirin 81 mg p.o. q.a.m. 5. Fluticasone nasal spray one spray both nares q.a.m. 6. Xarelto 50 mg p.o. daily. 7. Singulair 10 mg p.o. q.p.m. 8. Flomax 0.4 mg p.o. daily. 9. Advair 50/250 one puff inhalation b.i.d. 11. Losartan 25 mg p.o. daily. 12. Levalbuterol two puffs inhalation q.6 hours as needed. 13. Azithromycin 250 mg p.o. daily x2. 14. Cefpodoxime 200 mg p.o. q.12 hours x9. 15. Guaifenesin 1200 mg p.o. b.i.d. x28. New medications at discharge: 1. Azithromycin. 2. Cefpodoxime. 3. Guaifenesin. Medication discontinued at discharge: None. HOSPITAL COURSE: This is a brief summary of the patient's presentation. For more details, please see the history and physical from Dr. Janae Obregon on . In brief, the patient has past medical history as above, who presented for nonproductive cough and weakness for four or five days. The patient was found to have bibasilar infiltrate as above and was admitted for community- acquired pneumonia. The patient's urine antigen came back positive for Strep pneumo. The patient was treated with azithromycin and ceftriaxone. The patient improved greatly over the first day and has no complaints. The patient' s white blood cell count on 06/25 was 11.7 and decreased to 9.7 on the second day. The patient's red blood cell count also reduced to 9.7. Other laboratory values of note, the patient's creatinine was 1.78 on admission, which is above his baseline, which decreased to 1.51, which is around his baseline on the first day and continued to improve from there. The patient's cough became productive on the first day he was in the hospital. He was able to produce a sputum sample. The patient was able to ambulate to the bathroom, but became short of breath at that distance. The patient had no signs of COPD exacerbation. On 04/27/17, the patient risen in the morning and had significant wheezes and rhonchi on exam. The patient was given DuoNeb nebulizer , much improved on exam greatly, but it was not as good as on the day of admission when he had no adventitious lung sounds. The patient improved throughout the day again had no adventitious lung sounds by the end of the day. On 06/28/17, the patient was examined after first DuoNeb treatment in the morning and had no benign lung exam. The patient was able to be weaned down to 2 L of oxygen, he was on 4 continuously when he was first admitted. The patient said he felt comfortable going home. The patient was discharged. PHYSICAL EXAM ON DAY OF DISCHARGE: General: The patient is an 81-year-old male , who appears stated age, and sitting comfortably in bed, in no acute distress. Vital Signs: At discharge, temperature 97.6, heart rate 72, respiratory rate 14 , oxygen saturation 93% on 3 L, blood pressure 143/79. HEENT: Head: Normocephalic, atraumatic. Sclerae anicteric. No conjunctival injection. Nasal mucosa is moist without discharge. Oral mucosa moist. No pharyngeal erythema. Neck: Supple, nontender. No lymphadenopathy. No carotid bruit auscultated. Cardiac: Regular rate and rhythm. No clicks, murmurs, gallops, or rubs. Pulses 2+ bilaterally in dorsalis pedis, radial, and posterior tibialis areas. No edema noted in the bilateral lower extremities. Respiratory : Clear to auscultation bilaterally with diminished breath sounds throughout. No wheezes, rales, or rhonchi. Good air exchange. Abdomen: Distended, consistent with previous exams. No tenderness. Bowel sounds present and normoactive in all 4 quadrants. No abdominal bruits auscultated. Genitourinary : No CVA tenderness or suprapubic tenderness. Skin: Clean, dry, and intact. No rash. Psychiatric: Pleasant and cooperative. DISCHARGE PLAN: The patient will be discharged to home to complete a 5-day course of this medicine and a 7-day course of ceftriaxone plus cefpodoxime. The patient should use his supplemental oxygen and use home pulse oximetry to wean his oxygen down with a goal of maintaining his oxygen saturation above 90% . The patient is to follow up with his primary care doctor within one week and should reestablish with his breakfast and room attendant if indicated by continued need increase respiratory treatment or oxygen after the acute phase of his pneumonia has passed. The patient should continue all other medications. The patient is having heart healthy diet without caffeine. The patient should engage in activity as tolerated with the goal of increasing cardiorespiratory endurance. TIME SPENT: Approximately 60 minutes were spent on this discharge, 30 of which was spent [id number] with the patient and his obtaining history and physical and discussing the treatment plan. FRANKLIN LOPEZ [id number]/[facility] #: [id number] VITOR
== END 2017-06-28 10:45 | disposition home or self-care (01) | DRG 139 ==
LOC: ED 20:24 → MED 23:29
PROVIDERS: ADMIT Internal Medicine; ATTEND Internal Medicine
DX: J13 Pneumonia due to Streptococcus pneumoniae (principal); E11.22 Type 2 diabetes mellitus with diabetic chronic kidney disease; I48.0 Paroxysmal atrial fibrillation; J44.9 Chronic obstructive pulmonary disease, unspecified; Z99.81 Dependence on supplemental oxygen; E78.5 Hyperlipidemia, unspecified; I13.10 Hypertensive heart and chronic kidney disease without heart failure, with stage 1 through stage 4 chronic kidney disease, or unspecified chronic kidney disease; N18.3 Chronic kidney disease, stage 3 (moderate); D63.1 Anemia in chronic kidney disease; I25.10 Atherosclerotic heart disease of native coronary artery without angina pectoris; N40.0 Benign prostatic hyperplasia without lower urinary tract symptoms; Z79.01 Long term (current) use of anticoagulants; Z79.82 Long term (current) use of aspirin; Z79.899 Other long term (current) drug therapy; Z88.0 Allergy status to penicillin; Z87.891 Personal history of nicotine dependence; K59.00 Constipation, unspecified
CPT/HCPCS: 36415; 71020; 80048; 80053; 82272; 83605; 84484; 85025; 85610; 85730; 87040; 87070; 87205; 87502; 87899; 94640; 94760; A9270-GY; J0456; J0696

== ENCOUNTER 2017-11-28 06:48 | Emergency (ER) | payer OTHER, MEDICARE ==
[2017-11-28 07:46] LABS: ABS Basophils 0.1 10^3/ul (0-0.2); ABS Eosinophils 0.3 10^3/ul (0-0.6); ABS Lymphocytes 0.7 10^3/ul (1.0-4.8); ABS Monocytes 0.6 10^3/ul (0-0.8); ABS Neutrophils 8.2 10^3/ul (1.5-7.7); ABS Nucleated RBC 0 10^3/ul; Eosinophil % 3.2 % (0-6); Hematocrit 34 % (42-52); Hemoglobin 11.5 g/dl (14.0-18.0); Lymphocyte % 7.5 % (25-47); Mean Corpuscular HGB Conc 34 g/dl (31-36); Mean Corpuscular Hemoglobin 32 pg (27-31); Mean Corpuscular Volume 94 fL (80-94); Mean Platelet Volume 7.7 um3 (7.4-10.4); Nucleated Red Blood Cells % 0.1; Platelet Count 162 10^3/ul (150-450); Red Blood Count 3.63 10^6/ul (4.0-5.4); Red Cell Distribution Width 14 % (10.5-15); White Blood Count 9.9 10^3/ul (3.5-10.8)
[2017-11-28 07:52] LABS: INR 1.46 (0.77-1.02)
[2017-11-28 08:03] LABS: EGFR Non-African American 35.8 (>60)
--- NOTE | 2017-11-28 08:13 | RAD ---
INDICATION: Cough and chest pain, history of COPD. COMPARISON: Comparison is made with a prior chest x-ray study from June 25, 2017. TECHNIQUE: Dual-energy PA and lateral views of the chest were obtained. FINDINGS: The heart is within normal limits in size. Mediastinal and hilar contours appear within normal limits. The lungs are hyperinflated with flattening of the diaphragms consistent with chronic obstructive pulmonary disease. There is a small infiltrate present in the right lower lobe which is less prominent than on the prior study. No pleural effusion is seen. IMPRESSION: 1. SMALL RIGHT LOWER LOBE INFILTRATE. 2. COPD.
[2017-11-28] MEDS ORDERED: Levofloxacin 750 MG IVPREMIX(* 750 MG/150 ML BAG IVPB ONE (08:43)
[2017-11-28 11:04] VITALS: BP 136/66
--- NOTE | 2017-11-28 16:30 | ED ---
Seth Corrales Elizabeth, scribed for Stanley La MD on 11/28/17 at 0722 . HPI Chest Pain - HPI Summary HPI Summary: This patient is a 82 year old M presenting to [facility] via EMS with a chief complaint of shortness of breath since this morning. Patient notes the SOB has alleviated since arrival to the ED. Per triage note, patient was given x2 NTG, ASA x1, and duoneb x1 prior to arrival. The patient rates the SOB 2/10 in severity. Symptoms aggravated by nothing. Patient reports cough, shortness of breath, bilateral pedal edema. Patient notes that he uses 2.5-3L oxygen at all times at home and has Hx of COPD. - History of Current Complaint Chief Complaint: EDChestPainROMI Time Seen by Provider: 11/28/17 07:03 Hx Obtained From: Patient Onset/Duration: Started Hours Ago Timing: Lasting Minutes Initial Severity: Moderate Current Severity: Mild Pain Intensity: 2 Pain Scale Used: 0-10 Numeric Chest Pain Radiates: No Aggravating Factor(s): Nothing Associated Signs and Symptoms: Positive: Chest Pain, Shortness of Breath, Cough , Other: - pedal edema - Additional Pertinent History Primary Care Physician: [id number] - Allergy/Home Medications Allergies/Adverse Reactions: Allergies Allergy/AdvReac Type Severity Reaction Status Date / Time Penicillins Allergy Rash Verified 11/28/17 07:01 PMH/Surg Hx/FS Hx/Imm Hx Endocrine/Hematology History: Reports: Hx Diabetes - DM II Denies: Hx Anticoagulant Therapy, Hx Thyroid Disease Cardiovascular History: Reports: Hx Coronary Artery Disease, Hx Hypertension, Other Cardiovascular Problems/Disorders - CHOLESTEROL CONTROL WITH MEDS Denies: Hx Congestive Heart Failure, Hx Pacemaker/ICD Respiratory History: Reports: Hx Asthma, Hx Chronic Obstructive Pulmonary Disease (COPD) - Dx in evan 2010. 2L home O2 at night and as needed, Other Respiratory Problems/Disorders - COPD GI History: Reports: Hx Gastroesophageal Reflux Disease - OCCASIONAL - DIET RELATED, Other GI Disorders - OCCASIONAL CONSTIPATION History: Denies: Hx Renal Disease Musculoskeletal History: Reports: Hx Back Problems Sensory History: Reports: Hx Cataracts - BILATERAL, Hx Contacts or Glasses, Hx Hearing Problem - [place] Denies: Hx Hearing Aid Opthamlomology History: Reports: Hx Cataracts - BILATERAL, Hx Contacts or Glasses Neurological History: Denies: Hx Dementia, Hx Seizures Psychiatric History: Denies: Hx Substance Abuse - Cancer History Hx Chemotherapy: No Hx Radiation Therapy: No - Surgical History Surgery Procedure, Year, and Place: back surgery Hx Anesthesia Reactions: No Infectious Disease History: No Infectious Disease History: Denies: Hx Clostridium Difficile, Hx Hepatitis, Hx Human Immunodeficiency Virus (HIV), Hx Shingles, Hx Tuberculosis, Traveled Outside the [place] in Last 30 Days - Family History Known Family History: Positive: Unknown - Social History Alcohol Use: None Hx Substance Use: No Substance Use Type: Reports: None Hx Tobacco Use: Yes Smoking Status (MU): Former Smoker Type: Cigarettes Amount Used/How Often: 1 PPD FOR ABOUT 60 YEARS Length of Time of Smoking/Using Tobacco: 60 YEARS Have You Smoked in the Last Year: No Review of Systems Negative: Epistaxis Positive: Chest Pain Positive: Shortness Of Breath, Cough Positive: Edema - bilateral pedal edema All Other Systems Reviewed And Are Negative: Yes Physical Exam - Summary Physical Exam Summary: Appearance: The patient is well-nourished in no acute distress and in no acute pain. Skin: The skin is warm and dry and skin color reflects adequate perfusion. HEENT: The head is normocephalic and atraumatic. The pupils are equal and reactive. The conjunctivae are clear and without drainage. Nares are patent and without drainage. Mouth reveals moist mucous membranes and the throat is without erythema and exudate. The external ears are intact. The ear canals are patent and without drainage. The tympanic membranes are intact. Neck: the neck is supple with full range of motion and non-tender. There are no carotid bruits. There is no neck vein distension. Respiratory: Chest is non-tender. Crackles in base of left lung. Wet cough. Cardiovascular: Heart is regular rate and rhythm. There is no murmur or rub auscultated. There is no peripheral edema and pulses are symmetrical and equal. Abdomen: The abdomen is soft and non-tender. There are normal bowel sounds heard in all four quadrants and there is no organomegaly palpated. Musculoskeletal: There is no back tenderness noted. Extremities are non-tender with full range of motion. There is good capillary refill. There is no peripheral edema or calf tenderness elicited. Neurological: Patient is alert and oriented to person, place and time. The patient has symmetrical motor strength in all four extremities. Cranial nerves are grossly intact. Deep tendon reflexes are symmetrical and equal in all four extremities. Psychiatric: The patient has an appropriate affect and does not exhibit any anxiety or depression. Triage Information Reviewed: Yes Vital Signs On Initial Exam: Initial Vitals Temp Pulse Resp BP Pulse Ox 98.7 F 81 15 143/72 90 11/28/17 06:52 11/28/17 06:52 11/28/17 06:52 11/28/17 06:52 11/28/17 06:52 Vital Signs Reviewed: Yes Diagnostics - Vital Signs Vital Signs Temp Pulse Resp BP Pulse Ox 11/28/17 06:52 98.7 F 83 21 143/72 85 - Laboratory Lab Results: Lab Results 11/28/17 11/28/17 11/28/17 Range/Units 07:35 07:35 07:35 WBC 9.9 (3.5-10.8) 10^3/ul RBC 3.63 L (4.0-5.4) 10^6/ul Hgb 11.5 L (14.0-18.0) g/dl Hct 34 L (42-52) % MCV 94 (80-94) fL MCH 32 H (27-31) pg MCHC 34 (31-36) g/dl RDW 14 (10.5-15) % Plt Count 162 (150-450) 10^3/ul MPV 7.7 (7.4-10.4) um3 Neut % (Auto) 82.8 (38-83) % Lymph % (Auto) 7.5 L (25-47) % [place] % (Auto) 5.7 (0-7) % Eos % (Auto) 3.2 (0-6) % Baso % (Auto) 0.8 (0-2) % Absolute Neuts (auto) 8.2 H (1.5-7.7) 10^3/ul Absolute Lymphs (auto) 0.7 L (1.0-4.8) 10^3/ul Absolute Monos (auto) 0.6 (0-0.8) 10^3/ul Absolute Eos (auto) 0.3 (0-0.6) 10^3/ul Absolute Basos (auto) 0.1 (0-0.2) 10^3/ul Absolute Nucleated RBC 0 10^3/ul Nucleated RBC % 0.1 INR (Anticoag Therapy) (0.77-1.02) Sodium 135 L (139-145) mmol/L Potassium 4.4 (3.5-5.0) mmol/L Chloride 104 (101-111) mmol/L Carbon Dioxide 25 (22-32) mmol/L Anion Gap 6 (2-11) mmol/L BUN 42 H (6-24) mg/dL Creatinine 1.82 H (0.67-1.17) mg/dL Est GFR ( Amer) 46.0 (>60) Est GFR (Non-Af Amer) 35.8 (>60) BUN/Creatinine Ratio 23.1 H (8-20) Glucose 149 H (70-100) mg/dL Lactic Acid 1.7 (0.5-2.0) mmol/L Calcium 9.2 (8.6-10.3) mg/dL Total Bilirubin 0.50 (0.2-1.0) mg/dL AST 12 L (13-39) U/L ALT 8 (7-52) U/L Alkaline Phosphatase 63 (34-104) U/L Troponin I 0.00 (<0.04) ng/mL B-Natriuretic Peptide ( - 100) pg/mL Total Protein 7.3 (6.4-8.9) g/dL Albumin 3.7 (3.2-5.2) g/dL Globulin 3.6 (2-4) g/dL Albumin/Globulin Ratio 1.0 (1-3) Procalcitonin (<0.6) ng/mL 11/28/17 11/28/17 11/28/17 Range/Units 07:35 07:35 07:35 WBC (3.5-10.8) 10^3/ul RBC (4.0-5.4) 10^6/ul Hgb (14.0-18.0) g/dl Hct (42-52) % MCV (80-94) fL MCH (27-31) pg MCHC (31-36) g/dl RDW (10.5-15) % Plt Count (150-450) 10^3/ul MPV (7.4-10.4) um3 Neut % (Auto) (38-83) % Lymph % (Auto) (25-47) % [place] % (Auto) (0-7) % Eos % (Auto) (0-6) % Baso % (Auto) (0-2) % Absolute Neuts (auto) (1.5-7.7) 10^3/ul Absolute Lymphs (auto) (1.0-4.8) 10^3/ul Absolute Monos (auto) (0-0.8) 10^3/ul Absolute Eos (auto) (0-0.6) 10^3/ul Absolute Basos (auto) (0-0.2) 10^3/ul Absolute Nucleated RBC 10^3/ul Nucleated RBC % INR (Anticoag Therapy) 1.46 H (0.77-1.02) Sodium (139-145) mmol/L Potassium (3.5-5.0) mmol/L Chloride (101-111) mmol/L Carbon Dioxide (22-32) mmol/L Anion Gap (2-11) mmol/L BUN (6-24) mg/dL Creatinine (0.67-1.17) mg/dL Est GFR ( Amer) (>60) Est GFR (Non-Af Amer) (>60) BUN/Creatinine Ratio (8-20) Glucose (70-100) mg/dL Lactic Acid (0.5-2.0) mmol/L Calcium (8.6-10.3) mg/dL Total Bilirubin (0.2-1.0) mg/dL AST (13-39) U/L ALT (7-52) U/L Alkaline Phosphatase (34-104) U/L Troponin I (<0.04) ng/mL B-Natriuretic Peptide 111 H ( - 100) pg/mL Total Protein (6.4-8.9) g/dL Albumin (3.2-5.2) g/dL Globulin (2-4) g/dL Albumin/Globulin Ratio (1-3) Procalcitonin 0.1 (<0.6) ng/mL Result Diagrams: 11/28/17 07:35 11/28/17 07:35 Lab Statement: Any lab studies that have been ordered have been reviewed, and results considered in the medical decision making process. - Radiology Chest PA & Lat 2 VWS Xray Interpretation: No Acute Changes - IMPRESSION: 1. SMALL RIGHT LOWER LOBE INFILTRATE. 2. COPD. Dr. La has reviewed this report. Radiology Interpretation Completed By: Radiologist - EKG 06:57 Cardiac Rate: NL - at 80 EKG Rhythm: 1st Degree HB Re-Evaluation - Re-Evaluation 1st re-eval Re-Evaluation Time: 08:43 Change: Unchanged Comment: Discussed imaging and lab results with pt. Discussed course of tx with pt Chest Pain Course/Dx - Course Course Of Treatment: Mr. Magana is very clear with me that he had no chest pain although the EMS report says so and he was given NTG. He has been coughing for a few days and was more SOB today according to him and his . He had pneumonia in June and has never gotten back to his baseline. He has an infiltrate on CXR and Hie has had no CP here in 4 hours. His vitals are stable. - Diagnoses Provider Diagnoses: Pneumonia Discharge - Sign-Out/Discharge Documenting (check all that apply): Discharge/Admit/Transfer - Discharge Plan Condition: Stable Disposition: HOME Prescriptions: Levofloxacin TAB* [Levaquin TAB*] 750 mg PO DAILY #10 tab Patient Education Materials: Pneumonia (ED) Referrals: [facility] PHYSICIAN REFERRAL [Outside] - 1 Week Additional Instructions: Follow up with primary care physician within 1 week. Return to the emergency department with any new or worsening symptoms. - Billing Disposition and Condition Condition: STABLE Disposition: HOME The documentation as recorded by the Seth joseph Elizabeth accurately reflects the service I personally performed and the decisions made by me, Stanley La MD.
== END 2017-11-28 11:02 | disposition home or self-care (01) ==
LOC: ED 06:48
DX: J18.9 Pneumonia, unspecified organism (principal); R06.02 Shortness of breath; E11.9 Type 2 diabetes mellitus without complications; I25.10 Atherosclerotic heart disease of native coronary artery without angina pectoris; I10 Essential (primary) hypertension; J44.9 Chronic obstructive pulmonary disease, unspecified; K21.9 Gastro-esophageal reflux disease without esophagitis; Z79.899 Other long term (current) drug therapy; Z88.0 Allergy status to penicillin; F17.210 Nicotine dependence, cigarettes, uncomplicated; R94.31 Abnormal electrocardiogram [ECG] [EKG]
CPT/HCPCS: 36415; 71046; 80053; 83605; 83880; 84145; 84484; 85025; 85610; 93005; 96374; 99283